=== PATIENT | male | born 1985 | race Caucasian/White ===

== ENCOUNTER 2021-02-06 10:13 | Emergency (ER) | payer BC, SELFPAY ==
--- NOTE | ~2021-02-06 | XR_ITS ---
EXAMINATION: XR abdomen/kub 1V EXAM DATE: 02/06/2021 11:30 INDICATION: Left flank pain. 3 mm left UVJ stone on CT same day. TECHNIQUE: Frontal projection of the upper abdomen, frontal projection lower abdomen/pelvis for inter pretation. Correlation is made to CT abdomen earlier same date. FINDINGS: Possible identification of 3 mm left UVJ stone, indicated. A couple of small right kidney stones identified. Nonobstructive bowel gas pattern. Lung bases are clear. There is no organomegaly. There are no osseous abnormalities identified. IMPRESSION: Probable identification small left UVJ stone, right nephrolithiasis. Reviewed, dictated and finalized at location A. IMPRESSION: Probable identification small left UVJ stone, right nephrolithiasi s.
--- NOTE | ~2021-02-06 | CT_ITS ---
EXAMINATION: CT abdomen pelvis wo con EXAM DATE: 02/06/2021 10:58 INDICATION: Left flank pain. TECHNIQUE: Spiral CT of the abdomen and pelvis was performed without contrast. Axial, coronal and sag ittal images were reviewed. The dose-length product (DLP) for this examination was 457.06 mGy-cm. T he exposure was tailored according to patient size (auto mA exposure control), and iterative reconstr uction (ASIR) was used as additional dose reduction technique. There is no prior study for compariso n. FINDINGS: There is 3 mm stone in the left ureterovesicular junction, with mild left-sided obstructive nephropathy. Several additional punctate left nephrolithiasis. About 5 right-sided calyceal stones m easuring up to 2 mm. The prostate is unremarkable. The bladder is unremarkable. The liver, spleen, adrenal glands and pancreas are unremarkable. Gallbladder is unremarkable. No biliary obstruction. There is no retroperitoneal or pelvic lymphadenopathy. The appendix is normal. The stomach and small bowel are unremarkable. There is expected amount of c olonic stool. No free intraperitoneal gas. The heart is normal in size. There are no pericardial or pleural effusions. The lung bases are unremarkable. There is 1.5 cm sclerotic focus in the righ t iliac crest likely bone island. No other sclerotic foci. IMPRESSION: 1. Left UVJ 3 mm stone, mild obstructive nephropathy. consultants would appreciate baseline KUB. 2. Small right, punctate left nephrolithiasis. Reviewed, dictated and finalized at location A. IMPRESSION: 1. Left UVJ 3 mm stone, mild obstructive nephropathy. consultants would onur reciate baseline KUB. 2. Small right, punctate left nephrolithiasis.
[2021-02-06 10:30] VITALS: BP 136/76; PULSE 96; RESP 20; O2SAT 100
[2021-02-06] MEDS: ONDANSETRON INJ 4 MG/2 ML VIAL IV PUSH (10:53)
[2021-02-06] MEDS: MORPHINE SULFATE (*CRX) 4 MG/ML INJ IV PUSH (10:53)
[2021-02-06] MEDS: SODIUM CHLORIDE 0.9% IV 1,000 ML 999 ML IV CONT ×2 (10:53→11:55)
[2021-02-06 11:03] LABS: Basophils Percent Auto 0.2 % (0.2-1.2); Eosinophils Percent Auto 0.1 % (0-4.4); Hematocrit 43.9 % (42.0-52.0); Hemoglobin 14.9 g/dL (14.0-18.0); Immature Granulocyte Absolute 0.09 K/mm3 (0.00-0.031); Immature Granulocyte Percent A 0.7 % (0-0.5); Lymphocytes Absolute Auto 0.96 K/mm3 (0.9-3.2); Lymphocytes Percent Auto 7.4 % (18.3-44.2); Mean Corpuscular HGB Conc 33.9 g/dl (32-36); Mean Corpuscular Hemoglobin 30.7 pg (26-34); Mean Corpuscular Volume 90.3 fl (80-100); Mean Platelet Volume 10.9 fl (7.4-10.4); Monocytes Absolute Auto 0.5 K/mm3 (0.1-0.6); Monocytes Percent Auto 4.2 % (2.6-8.5); Neutrophils Absolute Auto 11.4 K/mm3 (1.3-6.7); Neutrophils Percent Auto 87.4 % (45.5-73.1); Platelet Count Result 229 k/mm3 (150-375); Red Blood Count 4.86 M/mm3 (4.6-6.20)
[2021-02-06 11:09] LABS: Add Urine Microscopic? YES; Appearance Urine Clear (Clear); Bilirubin Urine Negative (Negative); Blood Urine 2+ (Negative); Color Urine Yellow (Yellow); Glucose Urine UA Negative (Negative); Ketones Urine Negative (Negative); Leukocyte Esterase Ur Negative LEU/UL (Negative); Mucus Urine Moderate /lpf; Nitrate Urine Negative (Negative); Protein Urine 2+ mg/dL (Negative); RBC Urine >75 /hpf (0-2); Urobilinogen Urine Negative mg/dL (<2.0); WBC Urine 0-3 /hpf
[2021-02-06 11:12] LABS: Specific Grav Ur 1.035 (1.001-1.035)
[2021-02-06 11:13] LABS: Anion Gap 10 mmol/L (8-16); Blood Urea Nitrogen 16 mg/dL (9-20); Calcium 8.8 mg/dL (8.4-10.2); Carbon Dioxide 24 mmol/L (22-30); Chloride 103 mmol/L (98-107); Estimated CRCL calculation 77 ml/min; Estimated Glomerular Filt Rate > 60; Glucose 144 mg/dL (65-110); Potassium 4.4 mmol/L (3.4-5.0); Sodium 137 mmol/L (137-145)
--- NOTE | 2021-02-06 11:19 | ED.GENADULT ---
HPI - General Adult General Chief complaint: Urogenital-Male Stated complaint: I'm having kidney stones Time Seen by Provider: 02/06/21 10:35 Source: patient and RN notes reviewed Mode of arrival: ambulatory Limitations: no limitations History of Present Illness HPI narrative: Patient is a 35-year-old male who presents to emergency department for evaluation of left flank pain began yesterday intensified this morning had an episode of emesis notes history of urolithiasis is followed by an outside urologist on arrival. Patient on arrival does not appear distressed denies other complaints or concerns nothing is made the pain better nothing is made it worse Related Data Home Medications Medication Instructions Recorded Confirmed bupropion HCl mg PO 02/06/21 Allergies Allergy/AdvReac Type Severity Reaction Status Date / Time No Known Allergies Allergy Verified 02/06/21 10:33 Review of Systems Review of Systems: All systems reviewed & are unremarkable except as noted in HPI and below PMFSH Past Medical History Medical History (Updated 02/06/21 @ 11:25 by Richar Auguste PA-C) Urolithiasis Exam Narrative: GENERAL: Well-appearing, well-nourished, and in no acute distress. HEAD: Normocephalic, atraumatic. EYES: PERRLA and EOMI. ENT: Nares clear, no rhinorrhea or epistaxis. Mucous membranes moist. CHEST: Clear to auscultation. No respiratory distress. No wheezes rales or rhonchi HEART: Regular rate and rhythm. No murmur heard. Normal peripheral pulses. ABDOMEN: Soft, left-sided abdominal tenderness, nondistended EXTREMITIES: Normal range of motion. No edema. SKIN: Warm, dry, no rash. NEURO: No focal deficits. Alert and oriented x3. PSYCH: Normal mood and affect. Course Course Emergency Course: Patient presented with urolithiasis was evaluated felt appropriate for outpatient reevaluation no fever no signs of infection at this time with a 3 mm stone noting that he is weakly passed his stones felt appropriate for outpatient reevaluation by his urologist given reasons to return has been hydrated medicated in the emergency department Vital Signs Vital signs: Vital Signs Pulse Rate 96 02/06/21 10:30 Respiratory Rate 20 02/06/21 10:30 Blood Pressure 136/76 02/06/21 10:30 Pulse Oximetry 100 02/06/21 10:30 Pulse Rate 96 02/06/21 10:30 Respiratory Rate 20 02/06/21 10:30 Blood Pressure 136/76 02/06/21 10:30 Pulse Oximetry 100 02/06/21 10:30 Medical Decision Making MDM Narrative Medical decision making narrative: Patient with urolithiasis afebrile nontoxic-appearing will be discharged home with follow-up without patient urologist patient agreeing with this treatment plan felt appropriate for outpatient treatment provided with reasons to return patient is aware of his case findings treatment plan and diagnosis and agrees plan Vital Signs Vital Signs: Vital Signs Pulse Rate 96 02/06/21 10:30 Respiratory Rate 20 02/06/21 10:30 Blood Pressure 136/76 02/06/21 10:30 Pulse Oximetry 100 02/06/21 10:30 Pulse Rate 96 02/06/21 10:30 Respiratory Rate 20 02/06/21 10:30 Blood Pressure 136/76 02/06/21 10:30 Pulse Oximetry 100 02/06/21 10:30 Lab Data Result diagrams: 02/06/21 10:40 02/06/21 10:40 Labs: Lab Results 02/06/21 02/06/21 02/06/21 Range/Units 10:40 10:40 10:40 WBC 13.0 H (4.5-10.0) K/mm3 RBC 4.86 (4.6-6.20) M/mm3 Hgb 14.9 (14.0-18.0) g/dL Hct 43.9 (42.0-52.0) % MCV 90.3 (80-100) fl MCH 30.7 (26-34) pg MCHC 33.9 (32-36) g/dl RDW 13.0 (11.5-14.5) % Plt Count 229 (150-375) k/mm3 MPV 10.9 H (7.4-10.4) fl Immature Gran % (Auto) 0.7 H (0-0.5) % Neut % (Auto) 87.4 H (45.5-73.1) % Lymph % (Auto) 7.4 L (18.3-44.2) % Delta % (Auto) 4.2 (2.6-8.5) % Eos % (Auto) 0.1 (0-4.4) % Baso % (Auto) 0.2 (0.2-1.2) % Lymph # (Auto) 0.96 (0.9-3.2)
[2021-02-06] MEDS: KETOROLAC 30 MG/ML VIAL (*BKC) IV PUSH (11:22)
[2021-02-06] MEDS: fentaNYL CITRATE INJ (*CRX) 100 MCG/2 ML VIAL 50 MCG IV PUSH (11:55)
[2021-02-06 12:47] VITALS: BP 129/81; PULSE 72; RESP 16; O2SAT 98
== END 2021-02-06 12:48 | disposition home or self-care (01) ==
PROVIDERS: Emergency Provider Emergency Medicine; PCP Physician Assistant
DX: N13.8 Other obstructive and reflux uropathy (principal); N20.2 Calculus of kidney with calculus of ureter
CPT/HCPCS: 36415; 74018; 74176; 80048; 81001; 85025; 96361; 96374; 96375; 99284; J1885; J2270; J2405; J3010; J7030

== ENCOUNTER → 2021-08-20 13:17 | Outpatient (CLI) | payer BC, SELFPAY ==
--- NOTE | ~2021-08-20 | XR_ITS ---
EXAM: XR abdomen/kub 1V HISTORY: Nephrolithiasis COMPARISON: 02/06/2021. FINDINGS: Clear lung bases. Normal bowel gas pattern. No organomegaly. Stable punctate right renal s tones. Previously described left UVJ stone has passed. No definite stones present in the left kidney. IMPRESSION: Stable right nephrolithiasis. Reviewed, dictated and finalized at location K.
--- NOTE | ~2021-08-20 | US_ITS ---
EXAMINATION: US retroperitoneal comp DATE: 08/20/2021 13:38 INDICATION: Nephrolithiasis. TECHNIQUE: Multiple ultrasound grayscale images of the kidneys were obtained. COMPARISON: CT abdomen and pelvis 02/06/2021 FINDINGS: The right kidney measures 10.5 x 6.5 x 5.3 cm. The left kidney measures 9.7 x 6.1 x 5.8 cm. The kidne ys demonstrate normal parenchymal echogenicity. There is no hydronephrosis. The bladder is is not wel l distended. IMPRESSION: 1. Normal kidneys. No hydronephrosis. Reviewed, dictated and finalized at location A.
== END ==
PROVIDERS: Visit Provider Urology
DX: N20.0 Calculus of kidney (principal)
CPT/HCPCS: 74018; 76770

== ENCOUNTER 2022-10-18 11:09 | Outpatient (CLI) | payer BC, SELFPAY ==
--- NOTE | ~2022-10-18 | US_ITS ---
EXAMINATION: US renal BI DATE: 10/18/2022 11:44 INDICATION: Nephrolithiasis TECHNIQUE: Multiple grayscale and Doppler ultrasound images of the kidneys were obtained. COMPARISON: 08/20/2021 FINDINGS: The right kidney measures 11.4 x 5.9 x 5.3 cm. The left kidney measures 10.4 x 6.3 x 4.6 cm . The kidneys demonstrate normal parenchymal echogenicity. There is no hydronephrosis. The bladder de monstrates mild wall thickening. IMPRESSION: 1. Normal kidneys without hydronephrosis. 2. Mild wall thickening of the urinary bladder which could be due to incomplete distention or less li fish cystitis. Reviewed, dictated and finalized at location F. IMPRESSION: 1. Normal kidneys without hydronephrosis. 2. Mild wall thickening of the urinary bladder which could be due to incomplete distention or less likely cystitis.
--- NOTE | ~2022-10-18 | XR_ITS ---
Supine and upright views of the abdomen Clinical history: Nephrolithiasis COMPARISON: 08/20/2021 Findings: Bowel gas pattern is nonspecific. No evidence for obstruction or free air. Suspected tiny r ight renal stones. Osseous structures are intact. Impression: Suspected tiny right renal stones. Reviewed, dictated and finalized at [facility]. Impression: Suspected tiny right renal stones.
== END 2022-10-18 11:10 | disposition home or self-care (01) ==
PROVIDERS: PCP Physician Assistant; Visit Provider Urology
DX: N20.0 Calculus of kidney (principal)
CPT/HCPCS: 74018; 76775